=== PATIENT | female | born 1970 | race Caucasian/White ===

== ENCOUNTER 2017-01-11 13:52 | Emergency (ER) | payer BC ==
[~2017-01-11] VITALS: Ht 162.6 cm; Wt 77.0 kg
[2017-01-11 13:56] VITALS: TEMP 36.9; Ht 162.6 cm; Wt 77.0 kg
[2017-01-11] MEDS ORDERED: HYDROCODONE/ACETAMOPHEN 5/325MG TAB PO STA (14:24)
[2017-01-11] MEDS ORDERED: IBUPROFEN 600 MG TAB PO STA (14:24)
--- NOTE | 2017-01-11 14:31 | DIAGNOSTIC IMAGING REPORT ---
L KNEE 3 VIEWS CLINICAL HISTORY: 46 years-old Female presenting with left knee pain. TECHNIQUE: Frontal, lateral, and sunrise views of the left knee were obtained. COMPARISON: None. FINDINGS: Large knee effusion. No significant degenerative change no patellar dislocation. No acute fracture or malalignment. IMPRESSION: Large knee effusion without evidence of acute osseous injury. Soft tissue injury not excluded. This be better demonstrated with noncontrast MR. Electronically signed by: Dwight Tierney M.D. 01/11/2017 2:29 PM Dictated Date/Time: 01/11/2017 2:28 PM
[2017-01-11] MEDS ORDERED: PARO30TA3 PO (14:32)
[2017-01-11] MEDS ORDERED: HYDR-5688 PO (14:40)
--- NOTE | 2017-01-11 14:43 | EMERGENCY ROOM VISIT NOTE ---
ED Visit Note First contact with patient: 14:03 CHIEF COMPLAINT: Left knee injury last night HISTORY OF PRESENT ILLNESS: Patient is a 46-year-old white female who presents to the emergency department for evaluation of left knee pain after an injury last evening. She slipped on her steps, and twisted the left knee. She had immediate onset of pain and developed swelling shortly thereafter. She applied ice to the knee. She reports she did not have any [id number]-[id number] medications at home to take. She feels better when the knee is flexed slightly. She has pain with any attempt at range of motion and with weightbearing. She rates her pain a 10/10. She crutches from a friend. REVIEW OF SYSTEMS: Review of systems as per HPI. All other systems reviewed were negative. At least 6 systems reviewed. PMH: Electronic medical records are reviewed and summarized as above/below. See Problem List. SOCIAL HISTORY: Patient lives at home. Smoker. PHYSICAL EXAM: Vital Signs: Reviewed Nurse's notes. MENTAL STATUS: Patient is a well-appearing 46-year-old white female who was awake and alert and in no acute distress. KNEE: Examination of the left knee note a large effusion, mild extra- articular soft tissue swelling noted. Exam is difficult secondary to patient guarding and pain. She can extend fully, flexes only to roughly 70 before she has pain. The knee is globally tender to palpation. Unable to assess ligamentous stability due to patient guarding. The left lower extremity is neurovascularly intact. EMERGENCY DEPARTMENT COURSE: Ice was applied, patient was medicated with ibuprofen and Ellamore 2 tablets orally. X-rays of the knee were obtained, noted large effusion, no acute bony abnormality. The patient was wrapped with an Allen wrap, placed in a knee immobilizer and issued crutches. She was referred to [facility] for further care and evaluation of her injury. I discussed with her the possibilities including ligamentous and meniscal injury. The patient continued to rate her pain a 10/10 at discharge. Medication reconciliation: I attest that I have personally reviewed the patient' s current medication list. Patient was reviewed in the [facility] of [facility] Prescription Drug Monitoring Program, and there were no red flags noted. Blood pressure screening: Patient was found to have a slightly elevated blood pressure likely due to circumstances although she does have a history of borderline hypertension. I do not believe that the patient requires hypertension monitoring. L KNEE 3 VIEWS CLINICAL HISTORY: 46 years-old Female presenting with left knee pain. TECHNIQUE: Frontal, lateral, and sunrise views of the left knee were obtained. COMPARISON: None. FINDINGS: Large knee effusion. No significant degenerative change no patellar dislocation. No acute fracture or malalignment. IMPRESSION: Large knee effusion without evidence of acute osseous injury. Soft tissue injury not excluded. This be better demonstrated with noncontrast MR. Problem List Medical Problems: (1) Anxiety Status: Chronic (2) Hypertension Nos Status: Chronic Current/Historical Medications Scheduled Paroxetine HCl (Paroxetine), 30 MG PO DAILY Scheduled PRN Hydrocodone/Acetaminophen 5MG/325MG (Ellamore 5MG/325MG), 1-2 TABLETS PO Q4 PRN for Pain Allergies Coded Allergies: Aspirin (Verified Allergy, Intermediate, RASH/NAUSEA, 01/11/17) Caffeine (Verified Allergy, Intermediate, RASH/NAUSEA, 01/11/17) Phenacetin (Verified Allergy, Intermediate, RASH/NAUSEA, 01/11/17) Vital Signs Date Time Temp Pulse Resp B/P (MAP) Pulse Ox O2 Delivery O2 Flow Rate FiO2 01/11/17 15:02 88 20 145/80 99 01/11/17 13:56 36.9 90 18 165/101 95 Room Air Medications Administered Medications (Trade) Dose Ordered Sig/Lizet Route Start Time Stop Time Status Last Admin Dose Admin Ibuprofen (Motrin Tab) 600 mg NOW STAT PO 01/11/17 14:24 01/11/17 14:25 DC 01/11/17 14:34 600 MG Acetaminophen/ Hydrocodone Bitart (Ellamore 5/325 Tab) 2 tab NOW STAT PO 01/11/17 14:24 01/11/17 14:25 DC 01/11/17 14:34 2 TAB Departure Information Impression Primary Impression: Left knee injury Prescriptions Hydrocodone/Acetaminophen 5MG/325MG (Ellamore 5MG/325MG) Tab 1-2 TABLETS PO Q4 Y for Pain, #25 TAB For Initial Treatment Prov: Maddie Moyer PA 01/11/17 Referrals Rocael Martines M.D. (PCP) Dwight Dumont MD Patient Instructions My [facility] Additional Instructions DO NOT drive, drink alcohol, operate machinery, or perform dangerous activities today. You were given medications in the ER that can affect your ability to safely function or operate a vehicle. Hydrocodone/Acetaminophen (Ellamore) 5/325 mg: Take 1-2 pills every four hours for breakthrough pain. Avoid alcohol, operating machinery or dangerous equipment, working on ladders or roofs, DRIVING, or situations where being under the influence may be dangerous. It is recommended to use an korq-riu-adfwwnu stool softener such as Colace, 100mg twice daily while taking this medication to avoid constipation. Ibuprofen(Motrin, Advil) may be used for fever or pain. Use 600mg every six hours as needed. Take with food. Avoid using more than 2400mg in a 24 hour period. Do not use 2400mg per day for more than three consecutive days without physician direction. Prolonged inappropriate use can lead to stomach upset or ulcers. This medication can be taken if you need to drive, work, or perform activities which may be dangerous when taking narcotic pain medication. (AND/OR) Acetaminophen(Tylenol) may be used for fever or pain. Use 1000mg every six hours as needed. Avoid using more than 3000mg in a 24 hour period. This medication can be taken if you need to drive, work, or perform activities which may be dangerous when taking narcotic pain medication. Ice compresses for 20 minutes at a time four times daily for 2-3 days. Use the knee immobilizer and crutches as instructed. Rest and elevate your injury. Continue current medications. Return to the ER immediately for any numbness, tingling, severe pain, extreme swelling in the extremity or as needed. Call [facility] on Friday to arrange follow up for your injury.
[2017-01-11 15:02] VITALS: BP 145/80; PULSE 88; O2SAT 99
== END 2017-01-11 15:04 | disposition home or self-care (01) ==
LOC: C.EDB 13:54 → C.EDD 15:04
DX: S89.92XA Unspecified injury of left lower leg, initial encounter (principal); W10.9XXA Fall (on) (from) unspecified stairs and steps, initial encounter; Y92.9 Unspecified place or not applicable; F41.9 Anxiety disorder, unspecified; I10 Essential (primary) hypertension

== ENCOUNTER → 2017-01-17 | Outpatient (CLI) | payer BC ==
[~2017-01-17] MED LIST: HYDR-5688 PO; PARO30TA3 PO
--- NOTE | 2017-01-17 08:51 | DIAGNOSTIC IMAGING REPORT ---
MRI OF THE LEFT KNEE CLINICAL HISTORY: Left knee twisting injury. COMPARISON STUDY: Radiographs of the left knee dated 01/11/2017. TECHNIQUE: MRI of the left knee was performed utilizing proton density, T1, and T2-weighted sequences in the axial, sagittal, coronal planes. IV contrast was not administered for this examination. The examination is degraded by motion artifact. FINDINGS: Menisci: There is a bucket-handle tear involving the posterior horn of the lateral meniscus. The fragment is flipped centrally into the joint space. The medial meniscus appears intact. Ligaments: There is been rupture of the anterior cruciate ligament. The posterior cruciate ligament is intact. There is minimal irregularity of the medial collateral ligament. The fibers are intact. Fluid seen on both sides of the ligament suggesting grade 1 injury. The lateral collateral ligament complex is preserved. Extensor mechanism: The extensor mechanism is intact. Hoffa's fat pad is normal in appearance. Articular cartilage and bone: The articular cartilage is intact and well maintained all 3 compartments. Bony contusions are identified within the posterior aspect of the medial and lateral tibial plateau. Minimal contusion is also seen within the anterior aspect of the lateral femoral condyle. Joint effusion: There is a moderate joint effusion. Soft tissues: The musculature surrounding the knee joint is normal in bulk and signal intensity. A large and minimally complex popliteal cyst is identified and measures up to 6 cm. Superficial and deep soft tissue edema is seen around the knee. IMPRESSION: 1. Ruptured anterior cruciate ligament. 2. There is a large bucket-handle tear of the posterior horn of the lateral meniscus. The fragment is flipped centrally into the joint space. 3. Suspect grade 1 injury of the medial collateral ligament. 4. Bony contusions as above. 5. Joint effusion and popliteal cyst. Electronically signed by: Vargas Downing M.D. 01/17/2017 8:49 AM Dictated Date/Time: 01/17/2017 8:40 AM
== END | disposition home or self-care (01) ==
LOC: C.MRI 07:33
PROVIDERS: ATTEND Orthopaedic Surgery
DX: S83.512A Sprain of anterior cruciate ligament of left knee, initial encounter (principal); S83.252A Bucket-handle tear of lateral meniscus, current injury, left knee, initial encounter; S80.02XA Contusion of left knee, initial encounter; M71.22 Synovial cyst of popliteal space [Baker], left knee; X50.1XXA Overexertion from prolonged static or awkward postures, initial encounter

== ENCOUNTER → 2017-01-17 | Outpatient (CLI) | payer BC | END | disposition home or self-care (01) | LOC: C.RDSM 13:56 | PROVIDERS: ATTEND Orthopaedic Surgery | DX: M79.604 Pain in right leg (principal); M79.605 Pain in left leg ==

== ENCOUNTER → 2017-03-10 | Day surgery (SDC) | payer BC ==
[2017-02-19 13:21] VITALS: Ht 162.6 cm; Wt 77.3 kg
[2017-02-21 16:15] LABS: HEMATOCRIT 42.2 % (37-47); MEAN CELL VOLUME 100.7 fL (80-100); MEAN CORPUSCULAR HEMOGLOBIN 33.4 pg (25-34); MEAN CORPUSCULAR HGB CONC 33.2 g/dl (32-36); PLATELET COUNT 250 K/uL (130-400); RED BLOOD COUNT 4.19 M/uL (4.2-5.4); WHITE BLOOD COUNT 12.17 K/uL (4.8-10.8)
[2017-02-21 16:41] LABS: BUN/CREATININE RATIO 12.8 (10-20); CREATININE 0.8 mg/dl (0.60-1.20); POTASSIUM 3.5 mmol/L (3.5-5.1)
[~2017-03-10] VITALS: Ht 162.6 cm; Wt 77.3 kg
[~2017-03-10] MED LIST changes: +ATROPINE SULFATE 0.1 MG/ML 5ML SYR IV PRN; +BUPIVACAINE 0.5 % 5 MG/1 ML MPF 30ML VIAL ONE; +CEFAZOLIN 2000MG IV PUSH 10 ML IV SCH; +DEXAMETHASONE SOD INJ 4 MG/ML VIAL ONE; +EpINEphrine HCL INJ 1 MG/ML 5ML SYRINGE ONE; +EpINEphrine INJ 1MG/ML AMP 1 MG/ML AMP ONE; +FENTANYL CITRATE INJ 50 MCG/1 ML 2 ML VIAL ONE; +GLYCOPYRROLATE INJ 0.2 MG/ML VIAL ONE; -HYDR-5688 PO; +KETOROLAC TROMETHAMINE 30 MG/ML VIAL IV. PRN; +LABETALOL HCL IV 5 MG/ML 20ML IV ONE; +LABETALOL HCL IV 5 MG/ML 20ML IV PRN; +LACTATED RINGER'S 1000ML 1,000 ML IV SCH; +LIDOCAINE HCL 2% 2 ML VIAL (20MG/ML) ONE; +LIDOCAINE/EPINEPHRINE 1% INJ 50 ML VIAL ONE; +MIDAZOLAM HCL 1 MG/ML 2ML VIAL ONE; +MoRPHine SULFATE 2 MG/ML CARP IV PRN; +MoRPHine SULFATE 4 MG/ML 1 ML CARP\\VIAL IV PRN; +NEOSTIGMINE METHYLSULFATE 5 MG/5 ML SYR ONE; +ONDANSETRON INJ 2 MG/ML 2 ML VIAL IV PRN; +ONDANSETRON INJ 2 MG/ML 2 ML VIAL ONE; +OXYCODONE/ACETAMINOPHEN 5-325 TAB PO PRN; +PROPOFOL IV EMULSION 10 MG/ML 20 ML VIAL IV ONE; +ROPIVACAINE 0.5% 5 MG/ML 30 ML VIAL ONE; +SODIUM CHLORIDE 0.9% 1000ML 1,000 ML IV SCH
--- NOTE | 2017-03-10 06:42 | History & Physical Bridge - SC ---
H&P Re-Evaluation Bridge Note: I have examined the patient, reviewed the History & Physical and in the interval since the performance of the History & Physical I have noted the following changes of clinical significance: No changes noted
--- NOTE | 2017-03-10 09:50 | [facility] Post Operative Brief Note ---
Immediate Operative Summary Operative Date Mar 10, 2017. Pre-Operative Diagnosis Left Knee ACL, MCL and Lateral Meniscus Tears Post-Operative Diagnosis Same Procedure(s) Performed Left knee ACL reconstruction with hamstring autograft, lateral meniscus repair Surgeon Dr. Dumont Application Engineer Surgeon(s) Dr. Barrow; Ivelisse Kinney PA-C Estimated Blood Loss 25 cc Findings Radial tear of lateral meniscus repaired using a cinch stitch. ACL reconstructed with hamstring autograft. ALENA showed grade 1 MCL tear Fluids (cc crystalloids) 1200 cc Specimens None Drains None Anesthesia General with adductor canal block, local Complication(s) None Disposition Recovery Room / PACU
--- NOTE | 2017-03-10 10:25 | [facility] Operative Report ---
Operative Report Operative Date Mar 10, 2017. Pre-Operative Diagnosis Left Knee ACL, MCL and Lateral Meniscus Tears Post-Operative Diagnosis Same Procedure(s) Performed Left knee ACL reconstruction with hamstring autograft, lateral meniscus repair Surgeon Dr. Dumont Switchbox Assembler Surgeon(s) Dr. Barrow; Ivelisse Kinney PA-C Estimated Blood Loss 25 cc Findings none Fluids (cc crystalloids) 1200 cc Specimens None Complication(s) None Disposition Recovery Room / PACU I attest to the content of the Intraoperative Record and any orders documented therein. Any exceptions are noted below.
--- NOTE | 2017-03-10 10:30 | Discharge Instructions ---
Discharge Instructions Date of Service Mar 10, 2017. Admission Reason for Admission: Left Knee Acl, Mcl, And Lateral Meniscus Tears Discharge Discharge Diagnosis / Problem: Left knee ACL, MCL and Lateral Meniscus Tears Discharge Goals Goal(s): Decrease discomfort, Improve function, Increase independence Activity Recommendations Activity Limitations: as noted below Lifting Limitations: until after follow-up appointment Exercise/Sports Limitations: until after follow-up appointment May Resume Sexual Activity: after follow-up appointment Shower/Bathe: tomorrow, keep incision dry Driving or Machine Use: No driving until cleared by orthopedic surgeon . Instructions / Follow-Up Instructions / Follow-Up Post-operative Instructions Dear Patient and Family/Friends, Before you are discharged from the hospital, it is important to know what to expect when you get home after surgery. To that end, we have created this sheet of discharge instructions which covers many commonly asked questions. Make sure you go through this sheet in its entirety with your nurse before you are discharged. Please note that we will go over the specifics of your surgery and recovery when you return for your first post-operative visit. Sincerely, Dr. Dumont Pain Expect to be in a fair amount of pain after surgery. Remember, our goal is not to eliminate your pain, but to make it tolerable. It is a good idea to stay ahead of your pain by taking the medications you were prescribed once you get home. Typically, the pain starts improving 3-7 days after surgery. You should start weaning off the narcotic pain medication (oxycodone, hydrocodone, hydromorphone, morphine) as soon as your pain improves. Please call our office if your pain is not adequately controlled. Ice Ice your operative site at least 5 times a day for 15-30 minutes at a time. Make sure you have a thin cloth between the ice or cooling unit and your skin to prevent ruiz bite. This is especially important if you received a nerve block. Continue icing your operative site for the first 5-7 days after surgery , then as needed. Diet/Nausea/Vomiting Start by drinking clear liquids and eating crackers. If you can tolerate this, then you may resume your normal diet. If you feel nauseated or vomit, take Zofran/ondansetron (if prescribed). Please call our office if you have intractable nausea or vomiting, or, if after hours, you may go to the Emergency Room for help. Constipation Constipation is a common side effect of narcotic pain medication. If you have not had a bowel movement within 2 days after surgery, we recommend purchasing an over the counter laxative such as Milk of Magnesia, Dulcolax, or Miralax from a local pharmacy, and taking it as instructed. Call our clinic if any questions. Slings and Braces If you were placed in a sling or brace, it must be worn at all times, including sleep. You may remove your sling or brace for physical therapy, home exercises , and showering. The length of time you will be in your brace and range of motion restrictions depends on what surgery you had; these details will be reviewed at your first post-operative appointment. Nerve block The anesthesia team sometimes places a nerve block to help with post-operative pain control. This results in significant numbness and inability to move the extremity. The nerve block usually wears off in 8-12 hours, but sometimes can last up to 24 hours. Please call our office if you are still unable to move your extremity after 24 hours, unless you received a pain pump to take home. Nerve blocks typically wear off quickly, so start taking pain medication as soon as you start feeling soreness near your surgical site. Weight bearing and Range of Motion. Do not bear any weight through your operative extremity immediately after surgery. If you had upper extremity surgery, do not lift anything with that arm. If you are in a knee brace, keep it locked in place until your follow-up. We will discuss your weight bearing, range of motion, and lifting restrictions in detail at your first post-operative appointment. Continuous Passive Motion (CPM) Machine If you were prescribed a CPM machine, it will start after your first post- operative appointment, at which time we will give you instructions on the range of motion settings and duration of treatment Physical therapy You will be given a prescription for physical therapy or occupational therapy at your first post-operative appointment. Typically, patients start therapy within 1 week of surgery Wound care and showering We will inspect your wound at your first post-operative visit, and may do a dressing change at that time. Most patients will be in a water-proof dressing that is removed 14 days after surgery. It is normal to see some dried blood on the dressing. Do not remove your dressing, paper strips or sutures yourself unless you are given permission. Showering is allowed the day after surgery. Do not scrub or remove any dressings. The wound should not be submerged underwater (i.e. in a bathtub or pool) until 4 weeks after surgery TIFFANIE stockings If you were given white stockings, these are to be worn at all times except to shower (on both legs) for the first 2 weeks after surgery. Driving You may not drive while taking narcotic pain medication or while in a cast, splint, sling or brace. You, the patient, need to make the final determination about when you are safe to drive, however, the earliest you may consider driving after surgery is below: Hand/Wrist/Elbow Surgery: 3 days Shoulder Surgery: 2 weeks Hip,/Knee/Ankle Surgery: 4 weeks Fracture repair: 6 weeks Return to Work Your return to work depends on what surgery was done and what type of work you do. Please bring any paperwork your employer needs completed to your first post -operative visit. Also, bring a description of your job duties, as this helps us to understand what risks you may face at work. Travel Avoid long distance travel (greater than 1 hour) in airplanes and cars for the first 6 weeks after surgery. If you must travel, you need to have a Doppler ultrasound done before you travel to rule out a blood clot in your legs. Follow-up You should have a follow-up appointment already scheduled 1-2 days after surgery. If not, please contact our office to make this appointment before you leave the hospital. When to call the office It is normal to have swelling and bruising in the limb that was operated on. This will improve with time. It is also normal to have fevers for the first 2 days after surgery. Reasons you should call your doctor include: Uncontrolled pain; Nausea, vomiting, or constipation that does not improve with medication; Fevers over 101.5, chills, sweats; Drainage or bleeding from the wound; Foul odor; Spreading areas of redness; Any other concerns Current Hospital Diet Patient's current hospital diet: Discharge Diet Recommended Diet: Regular Diet Procedures Procedures Performed: Left knee ACL reconstruction with hamstring autograft, lateral meniscus repair Pending Studies Studies pending at discharge: no Medical Emergencies . Who to Call and When: Medical Emergencies: If at any time you feel your situation is an emergency, please call 911 immediately. . Non-Emergent Contact Non-Emergency issues call your: Primary Care Provider Call Non-Emergent contact if: you have a fever, temperature is above 101.5, your pain is not controlled, wound has increased drainage, wound has increased redness, you have any medication questions . "Provider Documentation" section prepared by Chau Kinney. . VTE Core Measure Inpt VTE Proph given/why not?: Eduar Pugh [place] Drug Monitoring Program Search Results: patient reviewed within database, no issues identified, see additional documentation
[2017-03-10] MEDS: FENTANYL CITRATE INJ 50 MCG/1 ML 2 ML VIAL IV PRN ×8 (10:33→11:29)
--- NOTE | 2017-03-10 10:55 | OPERATIVE REPORT ---
DATE OF OPERATION: 03/10/2017 PREOPERATIVE DIAGNOSES: Left knee anterior cruciate ligament tear and a lateral meniscus tear. POSTOPERATIVE DIAGNOSES: Same. OPERATION PERFORMED: 1. Left knee ACL reconstruction with hamstring autograft. 2. Left knee lateral meniscus repair. SURGEON: Dwight Dumont MD SURGEON: Bautista Barrow MD and Nirmal Ritchie PA. ANESTHESIA: General with adductor canal block and local. SPECIMENS: None. COMPLICATIONS: None. IMPLANTS: One Arthrex TightRope RT button and an 8-mm PEEK graft bolt screw and sheath construct. ESTIMATED BLOOD LOSS: 25 mL. IV FLUIDS: 1200 mL crystalloid. INDICATIONS: Ms. Kinney is a 46 year old female injured her left knee several weeks ago, sustaining an ACL, MCL and lateral meniscus tears. Her MCL was grade 2 and so, we treated her in a hinged knee brace for over 6 weeks to allow her MCL to heal. She has been in physical therapy, regaining her flexion. However, she does have difficulty reaching full extension. I had a long discussion with her about the risks and benefits of surgery, alternatives to surgery and expected outcomes. After reviewing all these she elected to proceed with surgery. All questions were answered. Informed consent was signed. OPERATIVE FINDINGS: 1. The undersurface of the patella was normal. 2. The trochlea was normal. 3. The medial and lateral gutters showed some small fragments from her torn ACL. 4. 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 5. The notch showed the PCL to be intact. Her ACL was torn off the femur. 6. The lateral compartment showed grade 1 chondromalacia over the lateral tibial plateau and the lateral femoral condyle with a radial tear of the lateral meniscus, medial to the popliteal hiatus, which had been flipped up into the posterior knee. The lateral meniscus tear was repaired with cinch stitch using the knee scorpion. The ACL was reconstructed with hamstring autograft. DESCRIPTION OF THE OPERATION: The patient was identified in the preoperative holding area, where surgical site was marked. She was brought back to the main operating room. She was placed on the operating room table and general anesthesia was administered. An exam under anesthesia was then performed. This revealed a grade 1 MCL residual laxity at 30 degrees opening, about 2 mm more than her other side. There was no laxity to varus stress at 0 and 30 degrees. She had a positive Daniel and positive pivot shift test. Her range of motion was from 0 up to 135 degrees preoperatively. The leg was then prepped and draped in the normal sterile fashion. Prior to incision, a multidisciplinary timeout was called. All in the room were in agreement. We began by exsanguinating the knee with an Esmarch bandage. The tourniquet was inflated to 250 mmHg. A 3-cm long incision was made one fingerbreadth medial to the tibial tubercle and extending distally. We dissected down to the level of the fascia. The sartorial fascia was then identified along its superior border. This was incised with a deep 15 blade. We then hockeysticked the fascial incision distally to expose the undersurface of the pads. A right angle clamp was then used to isolate the gracilis tendon, which was whipstitched with a #2 FiberLoop. A closed tendon stripper was used to release the tendon proximally. Next, the exact same technique was used to harvest the semitendinosus tendon. The tendons were then prepared on the back table. It sized to a size 8 graft. The graft was placed in the tensioner at 50 newtons of force. It was covered with a wet Ray-Rio sponge. Next, the arthroscope was introduced into the knee through an anterolateral portal. Diagnostic arthroscopy was performed revealing the above findings. A medial working portal was created under direct visualization. We then removed the old ACL stump using a 5.0 bone cutter bur. I carefully explored the lateral meniscus. Due to the radial nature of her tear as well as the fact that we were performing a concurrent ACL reconstruction, she has the best chance of healing this at this time. We were close to 6 weeks from her injury. The repair was indicated to decrease the chance of her developing arthritis in the lateral compartment. The knee scorpion was opened up. A circumferential cinch stitch was placed with a knot on top and tied down without difficulty. This reapproximated the edges of the meniscus nicely. I then trimmed up the edge of the residual meniscus tears to a smooth surface. Next, the FlipCutter guide was placed through the lateral portal while viewing through the medial portal. This was set at 105 degrees. It was placed at the anatomic insertion of the ACL and then drilled down into the knee. FlipCutter was flipped and then back drilled to a depth of 30 mm. The FlipCutter was then removed and a FiberStick was placed into the knee and shuttled out through the lateral portal and clipped to the drapes. Next, the point and shoot tibial guide was placed at the ACL insertion on the tibia, set at 60 degrees. A 2.4 guidewire was drilled up into the knee. We then drilled with an 8-mm reamer. Residual graft at the tunnel aperture was removed with a 5.0 bone cutter. Periosteum was removed at the tibial cortex aperture. I then grasped the passing stitch down through the tibial tunnel. I then shuttled the sutures up into the knee and under direct visualization, flipped the tightrope button on the lateral cortex of the femur. We then pulled on the white strands of suture to shuttle the graft up into the knee a distance of 25 mm. We then cycled the knee 12 times holding max tension on the graft. We then turned our attention to the tibial fixation. The knee was brought into full extension. The two strands of the semitendinosis were tied to each other, as were the gracilis strands, then placed on the throwing star under tension. We then dilated to a size 8 graft bolt. The sheath was placed followed by the screw. Excellent fixation was obtained. The knee was then brought back into full extension and we pulled on the white strands one last time to ensure the graft was appropriately tensioned in full extension. The scope was placed back in the knee and we were happy with the tension and position of the graft. At this point, the wounds were irrigated with copious amounts of normal saline. An 0 Vicryl was used to repair the sartorial fascia. 3-0 Vicryl was used for the deep dermis followed by 3-0 Monocryl in a subcuticular fashion for the hamstring harvest site, and buried 3-0 monocryl for her portals. 2 x 2 and Tegaderm dressings were placed after injecting the portal sites and the harvest site with Naropin. A compressive dressing was applied. The patient was placed in a hinged knee brace, brace locked in full extension. The range of motion was blocked from 0 to 90 degrees. She was awoke from anesthesia and transferred to the recovery room in stable condition. POSTOPERATIVE COURSE: The patient will be discharged home from the recovery room. She will be toe touch weightbearing for the next 6 weeks due to her radial lateral meniscus tear. Range of motion will be blocked from 0 to 90 degrees. She will be on aspirin for DVT prophylaxis. She will come to clinic tomorrow for her first postoperative physical therapy appointment, on the complex meniscus repair protocol. I attest to the content of the Intraoperative Record and any orders documented therein. Any exceptions are noted below. NINFA
[2017-03-10 11:56] VITALS: TEMP 37.1
--- NOTE | 2017-03-10 12:52 | Anesthesia Progress Nt - [facility] ---
Anesthesia Post Op Note Date & Time Mar 10, 2017 at 12:51 Vital Signs Pain Intensity: 5.0 Vital Signs Past 12 Hours Date Time Temp Pulse Resp B/P (MAP) Pulse Ox O2 Delivery O2 Flow Rate FiO2 03/10/17 11:56 37.1 79 22 157/91 (113) 95 Room Air 03/10/17 11:47 72 10 03/10/17 11:47 37.2 75 13 149/90 96 Room Air 03/10/17 11:47 74 10 93 03/10/17 11:46 149/90 03/10/17 11:42 80 27 03/10/17 11:42 80 27 97 03/10/17 11:41 147/102 03/10/17 11:37 76 13 91 03/10/17 11:37 74 13 03/10/17 11:36 152/100 03/10/17 11:32 80 15 03/10/17 11:32 81 15 93 03/10/17 11:31 158/113 03/10/17 11:27 84 15 96 03/10/17 11:27 83 15 03/10/17 11:26 164/96 03/10/17 11:22 76 11 97 03/10/17 11:22 79 11 03/10/17 11:21 163/92 03/10/17 11:17 86 17 97 03/10/17 11:17 86 17 03/10/17 11:16 148/105 03/10/17 11:12 74 15 94 03/10/17 11:12 77 15 03/10/17 11:11 156/96 03/10/17 11:07 76 12 97 03/10/17 11:07 74 12 03/10/17 11:06 161/110 03/10/17 11:04 156/99 03/10/17 11:02 82 19 98 03/10/17 11:02 82 19 03/10/17 10:57 82 16 03/10/17 10:57 81 16 97 03/10/17 10:56 147/104 03/10/17 10:52 80 24 03/10/17 10:52 79 24 98 03/10/17 10:51 145/97 03/10/17 10:47 78 15 03/10/17 10:47 75 15 96 03/10/17 10:46 160/108 03/10/17 10:42 82 17 03/10/17 10:42 81 17 97 03/10/17 10:41 175/109 03/10/17 10:37 80 16 97 03/10/17 10:37 82 16 03/10/17 10:36 164/111 03/10/17 10:32 81 19 03/10/17 10:32 81 19 98 03/10/17 10:31 167/102 03/10/17 10:27 78 25 03/10/17 10:27 78 25 162/105 97 03/10/17 10:25 145/87 03/10/17 10:24 77 12 145/87 95 Mask 6 03/10/17 07:07 0 03/10/17 07:06 130/84 03/10/17 07:04 73 03/10/17 07:04 73 21 96 03/10/17 07:01 126/81 03/10/17 06:59 75 03/10/17 06:59 77 13 96 03/10/17 06:56 145/93 03/10/17 06:54 61 17 165/93 03/10/17 06:33 36.7 69 16 141/86 (104) 97 Room Air Notes Mental Status: alert / awake / arousable, participated in evaluation Pt Amnestic to Procedure: Yes Nausea / Vomiting: adequately controlled Pain: adequately controlled Airway Patency, RR, SpO2: stable & adequate BP & HR: stable & adequate Hydration State: stable & adequate Anesthetic Complications: no major complications apparent
[2017-03-10 12:59] VITALS: BP 144/91; PULSE 69; O2SAT 95
--- NOTE | 2017-03-10 14:46 | [facility] Post Operative Brief Note ---
Immediate Operative Summary Operative Date Mar 10, 2017. Pre-Operative Diagnosis Left Knee ACL, MCL and Lateral Meniscus Tears Post-Operative Diagnosis Same Procedure(s) Performed Left knee ACL reconstruction with hamstring autograft, lateral meniscus repair Surgeon Dr. Dumont Biology Specialist Surgeon(s) Dr. Barrow; Ivelisse Kinney PA-C Estimated Blood Loss 25 cc Findings Hip joint distracted with gross traction indicating instability. Labral cracking and chondral instability from 2 o'clock to 12 o'clock repaired with 3 nanotack suture anchors. Cheilectomy performed. Capsule plicated. Fluids (cc crystalloids) 1200 cc Specimens None Drains None Anesthesia General with local Complication(s) None Disposition Recovery Room / PACU
== END | disposition home or self-care (01) ==
LOC: X.SURG 06:07
PROVIDERS: ATTEND Orthopaedic Surgery
DX: S83.512A Sprain of anterior cruciate ligament of left knee, initial encounter (principal); S83.282A Other tear of lateral meniscus, current injury, left knee, initial encounter; W10.9XXA Fall (on) (from) unspecified stairs and steps, initial encounter; Z98.890 Other specified postprocedural states; Z98.818 Other dental procedure status; Z85.828 Personal history of other malignant neoplasm of skin; E66.9 Obesity, unspecified; K21.9 Gastro-esophageal reflux disease without esophagitis; Z82.49 Family history of ischemic heart disease and other diseases of the circulatory system; Z83.3 Family history of diabetes mellitus; Z80.3 Family history of malignant neoplasm of breast

== ENCOUNTER → 2017-04-25 | Outpatient (CLI) | payer BC ==
[~2017-04-25] MED LIST changes: -ATROPINE SULFATE 0.1 MG/ML 5ML SYR IV PRN; -BUPIVACAINE 0.5 % 5 MG/1 ML MPF 30ML VIAL ONE; -CEFAZOLIN 2000MG IV PUSH 10 ML IV SCH; -DEXAMETHASONE SOD INJ 4 MG/ML VIAL ONE; -EpINEphrine HCL INJ 1 MG/ML 5ML SYRINGE ONE; -EpINEphrine INJ 1MG/ML AMP 1 MG/ML AMP ONE; -FENTANYL CITRATE INJ 50 MCG/1 ML 2 ML VIAL ONE; -GLYCOPYRROLATE INJ 0.2 MG/ML VIAL ONE; -KETOROLAC TROMETHAMINE 30 MG/ML VIAL IV. PRN; -LABETALOL HCL IV 5 MG/ML 20ML IV ONE; -LABETALOL HCL IV 5 MG/ML 20ML IV PRN; -LACTATED RINGER'S 1000ML 1,000 ML IV SCH; -LIDOCAINE HCL 2% 2 ML VIAL (20MG/ML) ONE; -LIDOCAINE/EPINEPHRINE 1% INJ 50 ML VIAL ONE; -MIDAZOLAM HCL 1 MG/ML 2ML VIAL ONE; -MoRPHine SULFATE 2 MG/ML CARP IV PRN; -MoRPHine SULFATE 4 MG/ML 1 ML CARP\\VIAL IV PRN; -NEOSTIGMINE METHYLSULFATE 5 MG/5 ML SYR ONE; -ONDANSETRON INJ 2 MG/ML 2 ML VIAL IV PRN; -ONDANSETRON INJ 2 MG/ML 2 ML VIAL ONE; -OXYCODONE/ACETAMINOPHEN 5-325 TAB PO PRN; -PROPOFOL IV EMULSION 10 MG/ML 20 ML VIAL IV ONE; -ROPIVACAINE 0.5% 5 MG/ML 30 ML VIAL ONE; -SODIUM CHLORIDE 0.9% 1000ML 1,000 ML IV SCH
== END | disposition home or self-care (01) ==
LOC: C.RDSM 14:29
PROVIDERS: ATTEND Orthopaedic Surgery
DX: Z98.890 Other specified postprocedural states (principal)

== ENCOUNTER 2018-10-16 08:22 | Observation (INO) ==
--- NOTE | 2018-09-29 17:34 | PAT Medication Instructions ---
Medication Instructions Date of Service September 29, 2018 Home Medications Medication Instructions Recorded amoxicillin 875 mg-potassium 1 tab PO BID #20 tab 09/25/18 clavulanate 125 mg tablet amlodipine 5 mg tablet 5 mg PO DAILY #30 tab 09/28/18 ferrous sulfate [Iron (ferrous sulfate)] 325 mg PO Q2D irbesartan 150 mg PO QAM multivitamin 1 tab PO QAM paroxetine HCl [Paxil] 30 mg PO QAM ranitidine HCl [Zantac] 150 mg PO BID PRN amoxicillin 875 mg-potassium clavulanate 125 mg tablet 1 tab PO BID amlodipine 5 mg tablet 5 mg PO DAILY Continue as directed amoxicillin 875 mg-potassium clavulanate 125 mg tablet 1 tab PO BID DO NOT take the morning of surgery ferrous sulfate [Iron (ferrous sulfate)] 325 mg PO Q2D irbesartan 150 mg PO QAM multivitamin 1 tab PO QAM Take morning of surgery With a small sip of water, OTHERWISE NOTHING TO EAT OR DRINK AFTER MIDNIGHT: paroxetine HCl [Paxil] 30 mg PO QAM ranitidine HCl [Zantac] 150 mg PO BID PRN (if needed) amlodipine 5 mg tablet 5 mg PO DAILY Other Notes If you have any questions please call us at [phone] or [phone] or [phone] or [phone]
--- NOTE | 2018-09-30 09:40 | Anesthesiology Consultation ---
Date of Service September 30, 2018 Assessment & Plan (1) Encounter for pre-operative examination: Pt with current sinus infection and soft wheeze in B/L lung bases heard on exam. Currently being treated with Augmentin by PCP. She does feel she is improving. Patient instructed to f/u with PCP if not improving by next week, and f/u with surgeon if persistently ill closer to surgery date. CHECK TEST AM DOS Chart Review Chart Review: Acceptable Risk for Surgery and Patient seen in Pre Admission Testing Teaching & Discussion Instructed NPO after midnight before surgery, except medications with 15 cc of water. Medication instructions provided according to the PAT guidelines. History Surgery Operation Date: 10/16/18 11:05 Proposed Procedures p Robotic Total Laparoscopic Hysterectomy - Ben Vang MD, FACOG Height/Weight Height: 5 ft 4 in Weight: 86.4 kg Allergies Allergy/AdvReac Type Severity Reaction Status Date / Time aspirin Allergy Intermediate N/V Verified 09/25/18 08:14 phenacetin Allergy Intermediate N/V - PT Verified 09/25/18 08:14 UNAWARE Medications Home Medications Medication Instructions Recorded Confirmed Last Taken ferrous sulfate [Iron (ferrous 325 mg PO Q2D 09/24/18 09/25/18 Unknown sulfate)] irbesartan 150 mg PO QAM 09/24/18 09/25/18 Unknown multivitamin 1 tab PO QAM 09/24/18 09/25/18 Unknown paroxetine HCl [Paxil] 30 mg PO QAM 09/24/18 09/25/18 Unknown ranitidine HCl [Zantac] 150 mg PO BID PRN 09/24/18 09/25/18 Unknown amoxicillin 875 mg-potassium 1 tab PO BID #20 tab 09/25/18 09/25/18 Unknown clavulanate 125 mg tablet amlodipine 5 mg tablet 5 mg PO DAILY #30 tab 09/28/18 Unknown Past Medical History Medical History Anemia Anxiety Cancer BCC GERD (gastroesophageal reflux disease) Hypertension Migraine Exercise / Class Metabolic Activity II 4-5 Yardwork/Stairs/Walk up hill (Denies CP or SOB with stairs) Past Family History Family History Grandmother No problems noted. Mother FHx: breast cancer Grandmother (Paternal) FHx: breast cancer Father Family history of diabetes mellitus FHx: thyroid cancer Grandfather (Paternal) Family history of diabetes mellitus Past Surgical History Surgical History H/O knee surgery REPAIR OF LEFT KNEE TORN LIGAMENTS H/O removal of cyst X3, pt states she was sedated for this S/P Mohs surgery for basal cell carcinoma Past Anesthesia History No Hx of Anesthesia Complications and No Family Hx of Anesthesia Complications History of PONV No Hx of PONV and No Hx of Motion Sickness Social History Smoking Status: Current every day smoker tobacco type: cigarettes Smoking cigarettes per day: 1 PPD X27 YEARS Do You Dip or Chew Tobacco: No Hx Alcohol Use: Yes alcohol intake frequency: other Alcohol Intake Frequency Comment: RARELY Hx Substance Use: No substance use type: does not use Review of Systems Pt denies any recent chest pain, shortness of breath, palpitations, fever or URI. +sinus infection + cough, currently being treated with Augmentin by PCP. Notes mild improvement since starting ABX four days ago. Physical Exam Vital Signs BP: 119/69 P: 60bpm SPO2: 96% RA T: 98.6 F R: 12 ENMT Mouth: no dental restorations, no chipped teeth and no loose teeth Thyromental Distance: > or= 3.5 Finger Breadths (4) Mallampati Class: III Neck normal visual inspection; neck extension not limited Respiratory normal respiratory effort Auscultation: + wheezes (B/L bases, not cleared with coughing.) Cardiovascular Rate/Rhythm: regular rate and regular rhythm Heart Sounds: no murmur Extremities: no edema Testing Laboratory Results 09/30/18 09:47 09/30/18 09:47 Blood Type O Negative 09/30/18 09:47 Antibody Screen NEGATIVE 09/30/18 09:47
[2018-09-30 10:41] LABS: Basophils # (auto) 0.02 K/uL (0-0.2); Basophils % (auto) 0.2 %; Eosinophils # (auto) 0.43 K/uL (0-0.5); Eosinophils % (auto) 4.8 %; Hematocrit (blood only) 41.4 % (37-47); Hemoglobin 13.7 g/dL (12.0-16.0); Immature Granulocytes # (auto) 0.04 K/uL (0.00-0.02); Immature Granulocytes % (auto) 0.4 %; Lymphocytes # (auto) 1.45 K/uL (1.2-3.4); Lymphocytes % (auto) 16.1 %; Mean Corpuscular Hgb Conc 33.1 g/dL (32-36); Mean Corpuscular Volume 100.7 fL (80-100); Mean Platelet Volume 10.2 fL (7.4-10.4); Monocytes # (auto) 0.82 K/uL (0.11-0.59); Monocytes % (auto) 9.1 %; Neutrophils # (auto) 6.25 K/uL (1.4-6.5); Neutrophils % (auto) 69.4 %; Platelet Count 275 K/uL (130-400); RDW Coefficient of Variation 14.1 % (11.5-14.5); Red Blood Count 4.11 M/uL (4.2-5.4); White Blood Count 9.01 K/uL (4.8-10.8)
[2018-09-30 10:48] LABS: BUN Creatinine Ratio 10.3 (10-20); Calcium 9.5 mg/dl (8.5-10.1); Creatinine Clr Calc Pharmacy 83.2 ml/min; Est GFR (Non-African American) 77.7; Potassium 4.8 mmol/L (3.5-5.1)
[~2018-10-16 08:22] MED LIST changes: +ACETAMINOPHEN 1000 MG/100 ML IV IV ONE; +CEFAZOLIN 2000MG 2,000 MG/15 ML SYR IV SCH; +LACTATED RINGER'S 1,000 ML IV SCH; +LR 15ML/HR IV SCH; -PARO30TA3 PO
[2018-10-16] MEDS ORDERED: GLYCOPYRROLATE 0.2 MG/ML VIAL ONE (08:33)
[2018-10-16] MEDS ORDERED: ONDANSETRON INJ 2 MG/ML 2 ML VIAL ONE (08:33)
[2018-10-16] MEDS ORDERED: fentaNYL citrate 100 MCG/2 ML VIAL ONE ×2 (08:33→11:42)
[2018-10-16] MEDS ORDERED: PROPOFOL IV EMULSION 10 MG/ML 20 ML VIAL IV ONE ×2 (08:33→11:54)
[2018-10-16] MEDS ORDERED: NEOSTIGMINE METHYLSULFATE 5 MG/5 ML SYR ONE (08:33)
[2018-10-16] MEDS ORDERED: ROCURONIUM BROMIDE 10 MG/ML 5 ML VIAL ONE ×2 (08:33→11:17)
[2018-10-16] MEDS ORDERED: MIDAZOLAM HCL 1 MG/ML 2ML VIAL ONE (08:33)
[2018-10-16] MEDS ORDERED: LIDOCAINE HCL 2% 2 ML VIAL/AMP(20MG/ML) INFIL ONE (08:33)
[2018-10-16] MEDS ORDERED: KETOROLAC 30 MG/ML VIAL ONE (08:33)
[2018-10-16] MEDS ORDERED: DEXAMETHASONE SOD INJ 4 MG/ML VIAL ONE (08:33)
[2018-10-16] MEDS ORDERED: PROMETHAZINE HCL 6.25 MG in SODIUM CHLORIDE 0.9% 50 ML IV PRN (09:05)
[2018-10-16] MEDS ORDERED: LABETALOL HCL IV 5 MG/ML 20ML IV PRN (09:05)
[2018-10-16] MEDS ORDERED: ATROPINE SULFATE 0.1 MG/ML 10ML SYR IV PRN (09:05)
[2018-10-16] MEDS ORDERED: ONDANSETRON INJ 2 MG/ML 2 ML VIAL IV PRN ×2 (09:05→14:27)
[2018-10-16] MEDS ORDERED: KETOROLAC 30 MG/ML VIAL IV PRN ×2 (09:05→14:27)
[2018-10-16] MEDS ORDERED: HYDROmorphone INJ 2 MG/ML SYR/VIAL IV PRN (09:05)
[2018-10-16 09:16] LABS: Pregnancy Test, Serum Negative (Negative)
--- NOTE | 2018-10-16 09:31 | History & Physical Bridge Note ---
Date of Service October 16, 2018 History & Physical Bridge Note I have examined the patient, reviewed the History & Physical and in the interval since the performance of the History & Physical I have noted the following changes of clinical significance: no changes noted
[2018-10-16] MEDS ORDERED: BUPIVACAINE 0.5 % 5 MG/1 ML MPF 30ML VIAL ONE (09:38)
[2018-10-16] MEDS ORDERED: TISSEEL FIBRIN SEALANT 4ML TOP ONE (11:23)
--- NOTE | 2018-10-16 12:45 | Operative Report ---
Post Operative Report Pre & Post Diagnosis Operation Date: 10/16/18 09:50 Pre-Op Diagnosis: Leiomyoma, Menorrhagia Post-Op Diagnosis: Leiomyoma, Menorrhagia, Uterus greater than 250 grams Procedure Operation Date: 10/16/18 09:50 Actual Procedures p Robotic Total Laparoscopic Hysterectomy with excite procedure, bilateral salpingectomy, cystoscopy(Not Applicable) - Ben Vang MD, FACOG Surgeon Ben Vang MD, FACOG Cooler Deliverer none Estimated Blood Loss 30 Findings Consistent with Post-Op Diagnosis Specimens Uterus cervix fallopian tubes Description of Procedure Patient given a general anesthetic prepped and draped in dorsal lithotomy position in [facility] IV antibiotics given bladder drained with a Pedersen catheter V care attached to her cervix placed in her uterus in the usual fashion glove change and a supraumbilical incision was made with scalpel using Ventura technique we did a cutdown into the peritoneal cavity placed a blunt-tipped Ventura trocar and then balloon inflated to stabilize the port CO2 gas used to insufflate the abdomen. Findings upper abdomen normal no sign of visceral organ injury deep Trendelenburg position then obtained findings large benign-appearing fibroid uterus with an anterior pedunculated fibroid near the bladder flap and a large subserosal posterior fibroid adnexa appeared within normal limits and ureters followed in normal locations 3 robotic ports 2 on the right one in the left placed under direct visualization the left upper quadrant 11 mm blade less port placed as well under direct visualization robot docked arm #1 was the monopolar neel arm #2 bipolar [place] arm #3 was the progress we initially remove the fallopian tubes logically and then remove these to the excess report to allow better visualization using the V care to manipulate I was able to identify the ureter on the left side the blood supply distal to the left ovary was then coagulated and cut with the monopolar neel. Been coagulated with the bipolar [place] we then same process for the round ligament uterine vessels were then skeletonized were well away from the left ureter for all this once the uterine vessels were isolated and the bladder flap was fully dissected away on the left side uterine vessels were coagulated with bipolar [place] and cut with the monopolar neel I did develop the bladder flap manipulating away the anterior fibroid with the pro-grasp. The exact same process was repeated on the right side staying well away from the right ureter but once both uterine pedic les were fully secure made a colpotomy anteriorly with the monopolar neel completed this specimen was then detached from the V care specimen placed in the left upper quadrant for safekeeping instrument exchanges occurred Arm #1 became the needle truck driver's offsider arm number true became the Paperspinera grasper 12 inch 2 oh 90-day V lock suture was then used to close the cuff the suture unfortunately snapped after closing fully left to right so another suture was started right to left incorporating the previous suture and then back left to right. Sutures were cut so there was no tail and we had overlapped the initial suture multiple times with the second suture after generous irrigation suction Tisseel was applied 4 cc to the pedicles Cystoscopy was performed by removing the Pedersen catheter visualized in the bladder there is no sign of injury or sutures good strong jets of urine from both the left and right ureter opening a new Pedersen catheter was in place We then used a 5 mm laparoscope and began the excite technique a large bag was placed in the 15 mm port. And then specimen was placed into the bag using a grasper to place a day and using a Kam retractor we then brought the specimen up to the level of the incision as the port had been removed and using excite technique we removed the fibroid using the C incision cut technique. Once the specimen was fully removed the bag and Kam retractor removed intact. After visualization afterwards there was no sign of injury hemostasis was excellent. Fascia was closed with 0 Vicryl in the umbilical incision and left upper quadrant subtendinous fat irrigated and closed with 0 Vicryl 4 oh septic or Monocryl closure sponge and instrument counts correct urine was clear at the end of the procedure Dermabond applied to the incisions I attest to the content of the Intraoperative Record and any orders documented therein. Any exceptions are noted below.
--- NOTE | 2018-10-16 13:30 | Anesthesiology Progress Note ---
Date of Service October 16, 2018 Anesthesia Post Procedure Vital Signs Vital Signs: Temp Pulse Pulse Resp BP Pulse Ox 10/16/18 13:25 37.1 C 79 18 107/92 94 10/16/18 13:15 79 20 124/75 97 10/16/18 13:05 76 19 119/86 97 10/16/18 12:55 84 20 139/86 98 10/16/18 12:49 37.3 C 92 H 16 147/101 H 96 10/16/18 08:46 36.9 C 66 18 138/74 95 Transfer of Care Handoff Completed per policy Notes Mental Status: alert / awake / arousable Patient Amnestic to Procedure: Yes Nausea / Vomiting: adequately controlled Pain: adequately controlled Airway Patency, RR, SpO2: stable & adequate BP & HR: stable & adequate Hydration State: stable & adequate Anesthetic Complications: no major complications apparent
[2018-10-16] MEDS ORDERED: SIMETHICONE 80 MG CHEW PO PRN (14:27)
[2018-10-16] MEDS ORDERED: PROMETHAZINE HCL 25 MG in SODIUM CHLORIDE 0.9% 50 ML IV PRN (14:27)
[2018-10-16] MEDS ORDERED: ZOLPIDEM TARTRATE 5 MG TAB PO PRN (14:27)
[2018-10-16] MEDS ORDERED: BISACODYL 10 MG SUPP PR PRN (14:27)
[2018-10-16] MEDS ORDERED: MAGNESIUM HYDROXIDE SUSP 30 ML UDC PO PRN (14:27)
[2018-10-16] MEDS ORDERED: IBUPROFEN 600 MG TAB PO PRN (14:27)
[2018-10-16] MEDS ORDERED: PROMETHAZINE HCL 12.5 MG in SODIUM CHLORIDE 0.9% 50 ML IV PRN (14:27)
[2018-10-16] MEDS ORDERED: ACETAMINOPHEN 325 MG TAB PO PRN (14:27)
[2018-10-16] MEDS ORDERED: MEPERIDINE HCL 50 MG/ML CARP IV PRN (14:27)
[2018-10-16] MEDS ORDERED: OXYCODONE/ACETAMINOPHEN 5mg/325mg TAB PO PRN ×2 (14:27)
[2018-10-16] MEDS ORDERED: LACTATED RINGER'S 1,000 ML IV SCH (14:30)
[2018-10-16] MEDS ORDERED: HYDROmorphone INJ 1 MG/ML SYRINGE IV PRN (15:09)
[2018-10-16] MEDS ORDERED: FERROUS SULFATE 325 MG TAB PO SCH (16:00)
[2018-10-16] MEDS ORDERED: DOCUSATE SODIUM 100 MG CAP PO SCH (21:00)
[2018-10-17] MEDS ORDERED: MULTIVITAMIN TAB PO SCH (09:00)
[2018-10-17] MEDS ORDERED: IRBESARTAN 150 MG TAB PO SCH (09:00)
[2018-10-17] MEDS ORDERED: PARoxetine HCl 10 MG TAB PO SCH (09:00)
[2018-10-17] MEDS ORDERED: AMLODIPINE BESYLATE 5 MG TAB PO SCH (09:00)
--- NOTE | 2018-10-18 09:17 | Discharge Summary ---
Date of Service October 18, 2018 Patient had a total laparoscopic hysterectomy that was uncomplicated she met discharge criteria few hours after surgery at that time she is ambulating well voiding well pain was well controlled had minimal bleeding no extremity pain was tolerating an oral diet and oral pain medication Admission Exam (Per Admitting) Constitutional WD/WN, vitals as above Gastrointestinal (Abdomen) normal bowel sounds, soft, nontender, no hepatosplenomegaly Discharge Data Procedures Performed Operation Date: 10/16/18 09:50 Actual Procedures p Robotic Total Laparoscopic Hysterectomy with excite procedure, bilateral salpingectomy, (Not Applicable) - Ben Vang MD, FACOG s Cystoscopy(Not Applicable) - Ben Vang MD, FACOG Hospital Course (1) Enlarged uterus: Patient met discharge criteria instructions were reviewed the prescriptions were given Percocet was given follow-up in the office was discussed
== END 2018-10-16 18:20 | disposition home or self-care (01) ==
LOC: 4N 08:22 → ASU 08:22